=== PATIENT | male | born 1955 | race Caucasian/White ===

== ENCOUNTER → 2017-07-19 | Day surgery (SDC) | payer BC ==
[~2017-07-19] MED LIST: Meperidine PF 50 MG/ML Syringe ONE; Midazolam 1 MG/ML 2 ML SDV ONE
[2017-07-19] MEDS: Lactated Ringers 1,000 ML IV SCH (11:33)
[2017-07-19] MEDS: Meperidine PF 50 MG/ML Syringe IV ONE (11:54)
[2017-07-19] MEDS: Midazolam 1 MG/ML 2 ML SDV IV ONE (11:54)
--- NOTE | 2017-07-19 13:28 | OR ---
DATE OF OPERATION: 07/19/2017 PREOPERATIVE DIAGNOSIS: FAMILY HISTORY OF COLON CANCER. POSTOPERATIVE DIAGNOSIS: FAMILY HISTORY OF COLON CANCER. SURGEON: Richie Gonsales MD PROCEDURE: FULL-LENGTH COLONOSCOPY. ANESTHESIA: Conscious sedation. COMPLICATIONS: None. SPECIMEN: None. FINDINGS: 1. Normal full-length colonoscopy. 2. [id number] sigmoid diverticulosis. RECOMMENDATIONS: Follow up colonoscopy every 5 years. INDICATIONS: The patient has a family history of colon cancer in his father. He is due for a 5-year scope. DESCRIPTION OF PROCEDURE: The patient was prepped and draped, placed in the left lateral decubitus position. A lubricated Olympus colonoscope was inserted and easily advanced to the cecum. Direct visualization of the ileocecal valve and appendiceal orifice was accomplished. The bowel prep was fine. Upon withdrawal of the scope throughout the right transverse and descending colon, no abnormalities were seen. The patient does have scattered diverticular disease in the sigmoid area up to the rectosigmoid junction, and is [id number] in severity without any inflammatory change, and I did not find any signs of any polyps, mass, ulceration, or bleeding sites. No vascular abnormalities or signs of colitis. The rectal vault was benign. Retroflexion of scope in the rectum showed no anal lesions. Air was suctioned. Scope was removed without complication. OMEGA/JAVED /[id number]
== END ==
LOC: CC.SDS 11:13
PROVIDERS: ATTEND Family Medicine
DX: Z12.11 Encounter for screening for malignant neoplasm of colon (principal); K57.30 Diverticulosis of large intestine without perforation or abscess without bleeding; I48.91 Unspecified atrial fibrillation; I10 Essential (primary) hypertension; M19.90 Unspecified osteoarthritis, unspecified site; Z79.82 Long term (current) use of aspirin; Z79.899 Other long term (current) drug therapy; Z80.0 Family history of malignant neoplasm of digestive organs
CPT/HCPCS: J2175; J2250; J7120

== ENCOUNTER 2019-09-15 15:16 | Inpatient (IN) | payer MEDICARE, BC ==
[2019-09-15 15:58] LABS: CHLORIDE,CL 103 mEq/L (98-106); SODIUM,NA 138 mEq/L (136-145)
[2019-09-15] MEDS ORDERED: Sodium Chloride 0.9% 1,000 ML IV SCH (17:00)
[2019-09-15] MEDS ORDERED: metroNIDAZOLE/Normal Saline 500 MG in Premix Bag 1 BAG IV SCH (17:00)
[2019-09-15] MEDS ORDERED: Iopamidol 755 Mg/ML 200 ML Bottle IV ONE (17:08)
[2019-09-15] MEDS: Levofloxacin/Dextrose 5%-Water 500 MG in Premix Bag 1 BAG IV SCH (18:04)
[2019-09-15] MEDS: Diltiazem 120 MG Cap.CD PO SCH (18:12)
[2019-09-15] MEDS: metroNIDAZOLE/Normal Saline 500 MG in Premix Bag 1 BAG IV SCH (19:30)
[2019-09-15] MEDS: Apixaban 5 MG Tab PO SCH (20:39)
[2019-09-16] MEDS: metroNIDAZOLE/Normal Saline 500 MG in Premix Bag 1 BAG IV SCH ×3 (06:33→21:43)
[2019-09-16] MEDS: Apixaban 5 MG Tab PO SCH ×2 (07:32→20:19)
[2019-09-16] MEDS: Diltiazem 120 MG Cap.CD PO SCH (07:32)
[2019-09-16 07:45] LABS: CHLORIDE,CL 102 mEq/L (98-106); SODIUM,NA 138 mEq/L (136-145)
[2019-09-16] MEDS ORDERED: Metoprolol Succinate 25 MG Tab.ER PO SCH (08:00)
[2019-09-16] MEDS: Furosemide 40 MG/4 ML VIAL IVPUSH SCH (09:01)
[2019-09-16] MEDS: Lisinopril 5 MG Tab PO SCH (10:53)
--- NOTE | 2019-09-16 14:08 | PN ---
DATE: 09/16/2019 S: Ze is a 64-year-old gentleman who was admitted to the hospital yesterday from clinic with concerns of diverticulitis and some congestive heart failure secondary to atrial fibrillation with a rapid ventricular response. CT scan of the abdomen pelvis was completed yesterday evening, did show that he did have some diverticulitis of the sigmoid colon. The patient was started on IV Levaquin and Flagyl. The patient has been afebrile. CT of the chest that was completed yesterday as well did not show any signs of any pulmonary emboli. The patient is currently on Eliquis secondary to atrial fibrillation with therapeutic dose of 5 mg twice a day. However, a CT of the chest did show some bilateral pleural effusions with some right-sided heart strain with concerns of some CHF exacerbation. Ze states that he had uneventful night. He states his breathing has improved, the abdominal pain has improved as well. He states with the palpation of left lower quadrant he still gets a little bit of discomfort, overall though he is feeling much better. He denies having any fevers. Continues to have a decent appetite, was able eat breakfast this morning. O: VITAL SIGNS: Blood pressure 110/75, pulse of 96, respirations 18, O2 is 94% on 2 L, and temperature of 98 degrees. He is afebrile. GENERAL: Pleasant, cooperative male. He is sitting up on his hospital bed. Does not appear to be in any distress at this point in time. HEENT: Grossly unremarkable. LUNGS: Crackles in the right lower base were noted. Otherwise, clear throughout. Respirations were equal and nonlabored. CARDIAC: Irregular rate, irregular rhythm. Continues to have a mild pedal edema bilaterally. ABDOMEN: Soft. Bowel sounds present, normoactive. Mild tenderness to palpation in the left lower quadrant. ASSESSMENT: 1. CONGESTIVE HEART FAILURE WITH MILD EXACERBATION. 2. ATRIAL FIBRILLATION WITH CORRECTED RAPID VENTRICULAR RESPONSE. 3. DIVERTICULITIS, LEFT SIGMOID WITHOUT PERFORATION. P: We will continue with IV antibiotics at this point time. All IV fluids have been stopped. We will start Lasix 40 mg IV daily. The patient overall seems to be improving. We will stop his metoprolol and start him on Coreg 3.125 mg twice a day. I will start him on lisinopril 2.5 mg daily. Echocardiogram to be completed this morning as well. The patient is completely in agreement. We will closely monitor. GAVINO/JAVED /[id number]
[2019-09-16] MEDS: Acetaminophen 325 MG Tab PO PRN ×2 (15:42→20:20)
[2019-09-16] MEDS: Levofloxacin/Dextrose 5%-Water 500 MG in Premix Bag 1 BAG IV SCH (17:32)
[2019-09-16] MEDS: Zolpidem 5 MG Tab PO PRN (20:20)
[2019-09-17] MEDS: metroNIDAZOLE/Normal Saline 500 MG in Premix Bag 1 BAG IV SCH ×3 (06:00→22:10)
[2019-09-17] MEDS: Apixaban 5 MG Tab PO SCH ×2 (07:23→19:44)
[2019-09-17] MEDS: Lisinopril 5 MG Tab PO SCH (07:23)
[2019-09-17] MEDS: Diltiazem 120 MG Cap.CD PO SCH (07:24)
[2019-09-17] MEDS: Furosemide 40 MG/4 ML VIAL IVPUSH SCH (07:24)
[2019-09-17] MEDS: Carvedilol 3.125 MG Tab PO SCH ×2 (07:24→17:23)
--- NOTE | 2019-09-17 11:20 | PN ---
DATE: 09/17/2019 S: Ze was admitted yesterday by Tin Mcdonald for rapid atrial fibrillation and associated congestive heart failure. He actually presented with abdominal pain, and CT showed a diverticulitis. He came in with decompensated heart failure with an atrial fibrillation, rate was in the 120s to 140s. Echocardiogram showed global hypokinesia with an EF of 30%, down from a prior echo 3 years ago of 60%. I was fortunately able to talk to Dr. Caro about this patient, who is here today and will be seeing him in consultation. The patient feels much better. His rate has been in the 80s or 90s. He was started on oral Cardizem and low-dose Coreg. Blood pressures are fine. He is feeling like he is breathing much easier, he is on 2 L, saturating in the mid 90s. O: GENERAL: On physical exam this morning, the patient is pleasant and cooperative. NECK: His resting JVD is improved. LUNGS: He continues to have bibasilar crackles, worse on the right. CARDIAC: Tones irregular but now controlled. ABDOMEN: Soft. The left lower quadrant pain is markedly improved, albeit still present. EXTREMITIES: Edema is down from 1 to 2+ to trace to 1 on both ankles. ASSESSMENT: 1. RAPID ATRIAL FIBRILLATION, RATE NOW CONTROLLED. 2. ACUTE CONGESTIVE HEART FAILURE, LIKELY SECONDARY TO ABOVE. 3. ACUTE DIVERTICULITIS. P: We will continue with current medications without change. Dr. Caro is present and will see patient in consultation. 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 No change to his IV antibiotics at this time, and we will await further orders from Dr. Caro. OMEGA/JAVED /[id number]
[2019-09-17] MEDS: Acetaminophen 325 MG Tab PO PRN ×2 (14:05→19:44)
[2019-09-17] MEDS: Levofloxacin/Dextrose 5%-Water 500 MG in Premix Bag 1 BAG IV SCH (17:23)
[2019-09-17] MEDS: Zolpidem 5 MG Tab PO PRN (21:34)
[2019-09-18] MEDS: metroNIDAZOLE/Normal Saline 500 MG in Premix Bag 1 BAG IV SCH (05:55)
[2019-09-18] MEDS: Furosemide 40 MG/4 ML VIAL IVPUSH SCH (08:00)
[2019-09-18] MEDS: Apixaban 5 MG Tab PO SCH (08:00)
[2019-09-18] MEDS: Diltiazem 120 MG Cap.CD PO SCH (08:08)
[2019-09-18] MEDS: Carvedilol 3.125 MG Tab PO SCH (08:08)
[2019-09-18] MEDS: Lisinopril 5 MG Tab PO SCH (08:09)
[2019-09-18 10:04] LABS: CHLORIDE,CL 98 mEq/L (98-106); SODIUM,NA 136 mEq/L (136-145)
--- NOTE | 2019-09-21 12:05 | DISCH ---
DISCHARGE DIAGNOSIS: 1. ACUTE DIVERTICULITIS. 2. CONGESTIVE HEART FAILURE EXACERBATION. 3. ATRIAL FIBRILLATION WITH RAPID VENTRICULAR RESPONSE. HISTORY OF PRESENT ILLNESS: Ze is a 64-year-old gentleman who was admitted on the after being seen in the clinic with complaints of left lower abdominal pain. Symptoms have started probably about a week prior to presenting to the clinic. He was having some increasing shortness of breath as well. He was afebrile. He denied any fevers. However, at presentation, his temperature was 99.6. The patient underwent a CT scan of the abdomen and pelvis, which did show acute diverticulitis. He also had elevated BNP which he was in some heart failure secondary to atrial fibrillation with a rapid ventricular response. The patient was started on IV Levaquin and Flagyl in the hospital for diverticulitis in which he improved significantly. In regard to the heart failure and trial fibrillation, the patient was started on lisinopril, carvedilol, and Cardizem while in the hospital, which we were able to have better rate control. He underwent echocardiogram that did show some decrease in ejection fraction. Dr. Caro was consulted in regard to patient's condition. Dr. Caro did evaluate patient in the hospital on Saturday and did feel that the CHF was brought on secondary to his uncontrolled heart rate. Ze states he is feeling much better. Denies any shortness of breath presently and no orthopnea. He states that the abdominal discomfort in the left lower quadrant has significantly improved as well. The patient has been afebrile for 24 hours. LABORATORY WORK: On admission, patient's white blood count was 11,600. D-dimer was elevated at 2.59. ProBNP was 3281. A urinalysis did show specific gravity of greater than 1.030 with some proteins in the urine and ketones. A COVID test was negative. A repeat blood work on the did show white blood count go down to 10,900. CRP did elevate up to 13.3 with a proBNP of 2636 with mild improvement. At discharge today, white blood count has normalized at 6600. CRP did decline down to 10.3 with a proBNP within normal limits of 998 presently. DISCHARGE MEDICATIONS: The patient will discontinue metoprolol at home, a new medications started and include: 1. Levaquin 500 mg daily for 7 days. 2. Flagyl 500 mg p.o. 3 times a day for 7 days. 3. Carvedilol 3.125 mg twice a day. 4. Lisinopril 2.5 mg daily. 5. Lasix 40 mg p.o. b.i.d. 6. Cardizem CD 120 mg daily. REFERRALS: He will see Dr. Caro for cardioversion on Saturday the 09/22. DISCHARGE INSTRUCTIONS: Heart healthy diet. Also include no exertion or strenuous exercise. Further instructions include if any fevers, increase in left lower quadrant abdominal pain, any increasing shortness of breath, lightheadedness, or any concerning symptoms at all, the patient is to return for re-evaluation prior to Saturday. The patient was in complete agreement. GAVINO/JAVED /[id number]
== END 2019-09-18 13:00 | disposition home or self-care (01) | DRG 391 ==
LOC: CC.FCMC 15:16 → CC.MS 15:16 → UNDOADMIN 16:22 → CC.MS 16:22
PROVIDERS: ADMIT Physician Assistant Medical; ATTEND Family Medicine
DX: K57.32 Diverticulitis of large intestine without perforation or abscess without bleeding (principal); I50.23 Acute on chronic systolic (congestive) heart failure; I11.0 Hypertensive heart disease with heart failure; I48.91 Unspecified atrial fibrillation; Z20.828 Contact with and (suspected) exposure to other viral communicable diseases; Z79.899 Other long term (current) drug therapy; Z90.49 Acquired absence of other specified parts of digestive tract
CPT/HCPCS: 36415; 71275; 74177; 80048; 80053; 81001; 82150; 82550; 83605; 83690; 83880; 84484; 85025; 85379; 86140; 87040; 93005; 93010; 93306; A9270-GY; J1940; J1956; J3490; J7030; Q9967; U0002

== ENCOUNTER → 2022-07-20 | Day surgery (SDC) | payer MEDICARE, BC ==
[~2022-07-20] MED LIST changes: +Ketamine 200 MG/20 ML MDV ONE; -Meperidine PF 50 MG/ML Syringe ONE; -Midazolam 1 MG/ML 2 ML SDV ONE; +Phenylephrine 1% 10 MG/ML SDV ONE; +Propofol 200 MG/20 ML SDV ONE; +fentaNYL 50 MCG/ML SDV ONE
[2022-07-20] MEDS: Lactated Ringers 1,000 ML IV SCH (07:57)
== END ==
LOC: CC.SDS 07:24
PROVIDERS: ATTEND Family Medicine
DX: Z12.11 Encounter for screening for malignant neoplasm of colon (principal); K63.5 Polyp of colon; K57.30 Diverticulosis of large intestine without perforation or abscess without bleeding; K64.9 Unspecified hemorrhoids; I48.91 Unspecified atrial fibrillation; I11.0 Hypertensive heart disease with heart failure; I50.9 Heart failure, unspecified; Z80.0 Family history of malignant neoplasm of digestive organs; Z79.01 Long term (current) use of anticoagulants; Z79.899 Other long term (current) drug therapy; Z98.890 Other specified postprocedural states
CPT/HCPCS: 00812; J2370; J2704; J3010; J3490; J7120

== ENCOUNTER 2024-12-03 07:09 | Day surgery (SDC) | payer MEDICARE ==
[2024-12-03] MEDS: Lactated Ringers 1,000 ML IV SCH (07:25)
[2024-12-03] MEDS ORDERED: Ketorolac 30 MG/ML SDV ONE (08:15)
[2024-12-03] MEDS ORDERED: Metoprolol Tartrate 5 MG/5 ML SDV ONE (08:15)
[2024-12-03] MEDS ORDERED: Phenylephrine 1% 10 MG/ML SDV ONE (08:15)
[2024-12-03] MEDS ORDERED: Ondansetron 4 MG/2 ML SDV ONE (08:15)
[2024-12-03] MEDS ORDERED: ePHEDrine 50 MG/ML SDV ONE (08:15)
[2024-12-03] MEDS ORDERED: Dexamethasone 4 MG/ML SDV ONE ×2 (08:15)
[2024-12-03] MEDS ORDERED: Propofol 200 MG/20 ML SDV ONE ×2 (08:15)
[2024-12-03] MEDS ORDERED: fentaNYL 50 MCG/ML SDV ONE ×3 (08:15)
[2024-12-03] MEDS ORDERED: Midazolam 1 MG/ML 2 ML SDV ONE (08:15)
[2024-12-03] MEDS ORDERED: Ketamine 200 MG/20 ML MDV ONE (08:15)
== END 2024-12-03 12:30 | disposition home or self-care (01) ==
LOC: CC.SDS 07:09
PROVIDERS: ATTEND Surgery
DX: K40.91 Unilateral inguinal hernia, without obstruction or gangrene, recurrent (principal); I48.91 Unspecified atrial fibrillation; I11.0 Hypertensive heart disease with heart failure; I50.9 Heart failure, unspecified; Z79.01 Long term (current) use of anticoagulants; Z79.899 Other long term (current) drug therapy
CPT/HCPCS: J0665; J0690; J1100; J1885; J2003; J2250; J2371; J2405; J2704; J3010; J3490; J7120